=== PATIENT | female | born 1995 ===

== ENCOUNTER 2017-02-02 20:28 | Emergency (ER) | payer MEDICAID ==
[~2017-02-02] VITALS: Ht 157.5 cm; Wt 71.8 kg
[2017-02-02 20:30] VITALS: BP 118/80; PULSE 57; RESP 20; O2SAT 100
== END 2017-02-02 20:52 | disposition left against medical advice (07) ==
LOC: SED 20:28
DX: M54.9 Dorsalgia, unspecified (principal); Z53.21 Procedure and treatment not carried out due to patient leaving prior to being seen by health care provider